=== PATIENT | female | born 1960 | race Caucasian/White ===

== ENCOUNTER 2016-11-17 23:15 | Inpatient (IN) ==
[2016-11-18] MEDS ORDERED: XYLOCAINE-MPF 1% INJ ONE (00:10)
[2016-11-18] MEDS ORDERED: TYLENOL PO ONE (00:10)
[2016-11-18] MEDS ORDERED: DUONEB (A & A) INH ONE (00:10)
[2016-11-18] MEDS ORDERED: ROCEPHIN IM ONE (00:10)
[2016-11-18] MEDS ORDERED: DECADRON IM ONE (00:11)
--- NOTE | 2016-11-18 00:13 | PROVIDER DOCUMENTATION ---
HPI-General Adult - General Chief Complaint: Cold Symptoms Stated Complaint: "CHF, COUGH, CANNOT WALK" Time Seen by Provider: 11/18/16 00:09 Source: patient Allergies/Adverse Reactions: Patient Allergies Allergy/AdvReac Type Severity Reaction Status Date / Time No Known Allergies Allergy Verified 11/18/16 03:20 Home Medications: Home Medication List Medication Instructions Recorded Confirmed Last Taken Type Cinacalcet [Sensipar] 30 mg PO DAILY 11/18/16 11/18/16 11/17/16 History Lisinopril 40 mg PO DAILY 11/18/16 11/18/16 11/17/16 History Nifedipine E.r. [Procardia ER] 60 mg PO DAILY 11/18/16 11/18/16 11/17/16 History Albuterol 2.5MG/Ipratrop 0.5MG 3 ml INH RTQ6H #120 neb 11/21/16 Unknown Rx [Duoneb (A & A)] Benzonatate [Tessalon] 100 mg PO TID PRN PRN #60 capsule 11/21/16 Unknown Rx Guaifenesin E.r. [Mucinex] 600 mg PO BID #60 tablet 11/21/16 Unknown Rx Hydralazine [Apresoline] 50 mg PO Q8H #120 tablet 11/21/16 Unknown Rx LISINOpril [Prinivil] 40 mg PO DAILY #30 tablet 11/21/16 Unknown Rx Levofloxacin 250 mg PO EVERY OTHER DAY #5 tablet 11/21/16 Unknown Rx - History of Present Illness -Gen Adult Nature of Presenting Problems: Pt is 55 y/o F c chief complaint of cough and cold symptoms that have progressively worsened over the course of 6 weeks. Pt states that 3 days ago she was seen at an urgent care and started on abx and steroids but did not start these medications until today. This evening, pt states she has had worsening sob and is concerned about her CHF. Pt has a h/o htn, chf, renal failure on dialysis (next appointment will be tomorrow morning), arthritis. On arrival, pt is sob and febrile. Review of Systems - Adult - REVIEW OF SYSTEMS - ADULT Constitutional: reports: see HPI, chills, fever, fatique Eyes: reports: no symptoms reported, blurred vision, double vision Ears, Nose, Mouth & Throat: reports: no symptoms reported. denies: ear discharge, nose pain Cardiovascular: reports: see HPI, orthopnea. denies: chest pain, irregular heart rate Respiratory: reports: see HPI, cough, shortness of breath, wheezing Gastrointestinal: reports: no symptoms reported. denies: abdominal pain, nausea , vomiting Genitourinary: reports: see HPI, other (polyuria). denies: dysuria, hesitency Musculoskeletal: reports: no symptoms reported. denies: joint pain, joint swelling Integumentary: reports: no symptoms reported. denies: hives, itching Neurological: reports: no symptoms reported. denies: numbness, paresthesia Psychiatric: reports: no symptoms reported. denies: anxiety, emotional problems Endocrine: reports: no symptoms reported. denies: change in skin pigment, cold intolerance, heat intolerance Hematologic/Lymphatic: reports: no symptoms reported. denies: blood clots, low blood count Allergic/Immunologic: reports: no symptoms reported. denies: allergic reactions , food allergy All Other Systems: Reviewed and Negative Past History - Adult - PAST MEDICAL HISTORY-ADULT Review of Records: reports: Old Records Reviewed, Nursing Assessment Review, Medications Reviewed, Social history reviewed & non-contributory. Major Childhood Illnesses: reports: denies history Cardiovascular: reports: CHF, HTN, hyperlipidemia Respiratory: reports: COPD, lung disease, pneumonia Gastrointestinal: reports: GERD, other (chronic constipation) Obstetrical/Gynecological: reports: denies history Genitourinary: reports: dialysis, ESRD Musculoskeletal: reports: arthritis Neurological: reports: denies history Endocrine/Immune: reports: denies history Other Conditions: reports: denies history - PRIOR SURGERIES/PROCEDURES Surgical/Procedure History: reports: cholecystectomy, , orthopedic ( extremity) (x-fix lower extremity), joint replacement, other (dialysis shunt) - IMMUNIZATION STATUS Childhood Immunizations: See Nurse Assessment Flu Vaccine: See Nurse Assessment - FAMILY HISTORY Family History: reviewed, not pertinent - SOCIAL HISTORY Smoking: denies Substance Use: none/never Alcohol Use Frequency: every day (2 shots daily) Living Situation: family Physical Exam-General - PHYSICAL EXAM-ADULT Initial Vital Signs Reviewed: Yes - CONSTITUTIONAL General Appearance: alert, no apparent distress - EYES Eyes: PERRL/EOMI, pink conjunctivae - HEAD, EARS, NOSE, MOUTH & THROAT HENMT: normocephalic/atraumatic, moist mucous membranes, normal ENT inspection - NECK Neck: normal inspection - RESPIRATORY Respiratory: chest non-tender, lungs clear, normal breath sounds - CARDIOVASCULAR Cardiovascular: normal peripheral pulses, regular rate, rhythm - GASTROINTESTINAL (ABDOMEN) Abdominal Exam: normal bowel sounds, non tender, soft - LYMPHATIC Lymphatic: no adenopathy - MUSCULOSKELETAL Back Exam: normal inspection, no CVA tenderness, no vertebral tenderness Extremity: normal range of motion, non-tender, normal inspection - SKIN Integumentary: normal color, normal turgor, warm/dry - NEUROLOGIC Neurologic: grossly normal, no motor/sensory deficits - PSYCHIATRIC Psych/Mental Status: normal mood/affect, normal thought content, normal thought process, oriented x 3 Progress - PLAN OF CARE/RESULTS Progress/Plan/Lab Results: Vital Signs - 8 hr 11/17/16 23:42 Temperature 101.5 F H Pulse Rate 115 H Respiratory Rate 18 Blood Pressure 186/127 O2 Sat by Pulse Oximetry 100 Orders Category Date Time Status Saline Loc NOW Care 11/18/16 00:10 Ordered ABG [RESP] Stat Lab 11/18/16 00:10 Ordered BLOOD CULTURE [BLDCUL] Stat Lab 11/18/16 00:10 Uncollected CBC WITH DIFF [HEME] Stat Lab 11/18/16 00:10 Uncollected COMPREHENSIVE METABOLIC PANEL [CHEM] Stat Lab 11/18/16 00:10 Uncollected Flu Swab [INFLUENZA SCREEN A/B] Stat Lab 11/18/16 00:13 Uncollected LACTATE, PLASMA [CHEM] Stat Lab 11/18/16 00:10 Uncollected Acetaminophen [Tylenol] Med 11/18/16 00:10 Once 650 mg PO NOW ONE Albuterol 2.5MG/Ipratrop 0.5MG [Duoneb (A & A)] Med 11/18/16 00:10 Once 3 ml INH NOW ONE CefTRIAXONE [Rocephin] Med 11/18/16 00:10 Once 1 gm IM NOW ONE Dexamethasone [Decadron] Med 11/18/16 00:11 Once 10 mg IM NOW ONE Lidocaine 1% Pf [Xylocaine-Mpf 1%] Med 11/18/16 00:10 Once 5 ml INJ NOW ONE Aerosol Treatments Routine Oth 11/18/16 00:11 Ordered Aerosol Treatments Stat Oth 11/18/16 00:11 Ordered Pulse Oximetry Stat Oth 11/18/16 00:10 Ordered Result Diagrams: 11/19/16 05:57 11/21/16 05:35 - CHANGE OF SHIFT REPORT (ED Provider) Report Given and Care Transferred to:: Dr. Evans (ER MD) Time of Transfer: 02:44 (pending labs) Departure - Departure Date of Disposition Decision: 11/18/16 Time of Disposition Decision: 04:00 DIAGNOSIS: Pneumonia Qualifiers: Pneumonia type: due to unspecified organism Laterality: unspecified laterality Lung location: unspecified part of lung Qualified Code(s): J18.9 - Pneumonia, unspecified organism Disposition: ADMITTED INPATIENT 09 Certified Medical Emergency: Emergent Condition: Stable - Critical Care Note This patient required my direct & personal management of CC.: No Attestation - Physician/ YADIRA Attestation Patient care was provided by Advanced Practice Provider:: Yes Advanced Practice Provider:: Yo Lopez Advanced Practice Provider documentation review:: The Mid-level provider documentation, treatment plan and medical decision making was reviewed by the physician who agrees with all treatment and medical decision making by the P. The physician spent face to face time with patient:: Yes Advanced Practice Provider documentation review:: Supervising physician onsite and consulted in the evaluation and care of this patient. The physician did have a face to face encounter with the patient.
[2016-11-18 00:48] LABS: ALLEN TEST YES; BE 1.1 mmoll (-3.0-3.0); BLOOD TYPE ARTERIAL; DRAW SITE R RADIAL; METHB 0.8 % (0.0-1.5); O2(CT) 12.4 mL/dL (15.0-23.0); PCO2(98.6) 36 mmHg (35-45); SAMPLE BLOOD; SAO2 85.8 % (95.0-100.0); THB 10.6 g/dL (11.5-17.4); pH(98.6) 7.45 (7.35-7.45)
[2016-11-18 00:53] LABS: MODALITY ROOM AIR; PO2(98.6) 45 mmHg (60-100)
[2016-11-18 02:43] LABS: ALBUMIN 3.8 g/dL (3.5-5.0); CALCIUM 9.6 mg/dL (8.8-10.2); POTASSIUM 4.4 mmol/L (3.5-5.1); TOTAL BILIRUBIN 0.27 mg/dL (0.20-1.00); TOTAL PROTEIN 7.6 g/dL (6.3-8.3)
[2016-11-18 03:14] LABS: BASO% 0.2 % (0.0-0.8); EOS# 0.01 X1000 (0.0-0.7); EOS% 0.2 % (0.0-10.0); HEMATOCRIT 33.6 % (37.0-47.0); HEMOGLOBIN 10.7 g/dL (12.0-16.0); LYMPH# 0.25 X1000 (1.2-3.4); LYMPH% 4.4 % (20.5-51.1); MANUAL DIFF NEEDED? NO; MCH 30.7 PG (27-31); MCHC 31.8 g/dL (33-37); MCV 96.6 FL (81-99); MONO# 0.17 X1000 (0.11-0.59); MPV 9.7 FL (7.4-10.4); NEUT% 92.2 % (42.2-75.2); PLT 198 X1000 (130-400); RBC 3.48 XMIL (4.2-5.4)
[2016-11-18 03:15] LABS: URINE CULTURE NEEDED? NO; URINE MICRO REVIEW NEEDED? NO; URINE SOURCE CLEAN CATCH
[2016-11-18 03:19] LABS: BILIRUBIN URINE NEGATIVE (NEGATIVE); BLOOD URINE NEGATIVE (NEGATIVE); COLOR YELLOW; GLUCOSE URINE 200 mg/dL (NEGATIVE); LEUKOCYTES URINE NEGATIVE (NEGATIVE); NITRITE URINE NEGATIVE (NEGATIVE); PH URINE 8.5; PROTEIN URINE >600 mg/dL (NEGATIVE); TURBIDITY URINE CLEAR (CLEAR); UROBILINOGEN URINE NORMAL (NORMAL)
[2016-11-18 03:20] LABS: UR EPITHELIAL CELLS <10 /HPF (<10); URINE BACTERIA NEGATIVE /HPF; URINE RBC <10 /HPF (<10); URINE WBC <10 /HPF (<10)
--- NOTE | 2016-11-18 05:33 | HISTORY AND PHYSICAL ---
PRIMARY CARE PHYSICIAN: None. CHIEF COMPLAINT: Shortness of breath and fever x4 days. HISTORY OF PRESENTING ILLNESS: A 55-year-old female with a history of end- stage renal disease on renal dialysis on Monday, Monday, Monday and hypertension, who presented to the emergency department with 4 days history of having cough, fever and shortness of breath. She apparently went to an urgent care and she got injection she states, and was told to fill the prescriptions. However, she did not get the prescriptions filled. She developed worsening shortness of breath and fever and subsequently had come to the emergency department. At the ER, she was evaluated and due to her presenting symptoms it was thought that she would need admission for further evaluation and management. The patient while in the ER also had imaging done, and her x- rays were read as right lower lobe infiltrate as per ER physician. At the time of my examination, she denied any headache or vision changes. No chest pain or hemoptysis. No weight changes but complained of fevers, cough and shortness of breath. PAST MEDICAL HISTORY: Includes end-stage renal disease and hypertension. PAST SURGICAL HISTORY: Cholecystectomy. Right knee surgery. Left forearm fistula. ALLERGIES: No known drug allergies. CURRENT MEDICATIONS: As listed in the medication reconciliation sheet. SOCIAL HISTORY: She denies any history of smoking. She admits to social alcohol use. Denies any illicit drug use. FAMILY HISTORY: No history of coronary disease. REVIEW OF SYSTEMS: Twelve point review of systems as listed in HPI. Other systems negative. PHYSICAL EXAMINATION: GENERAL: Cooperative and friendly female. She is resting more comfortably now. VITAL SIGNS: Includes temperature 101.5 degrees, pulse 115, respirations 18, and blood pressure 186/127. HEENT: Atraumatic, normocephalic. Extraocular movements intact. PERRLA. NECK: No masses. CHEST: Bibasilar rales. CARDIOVASCULAR: Regular rate and rhythm. ABDOMEN: Soft, obese. Positive bowel sounds. EXTREMITIES: Trace edema. NEUROLOGIC: She is awake, alert, and oriented x3. : No bladder distention. SKIN: Warm. LABORATORIES AND STUDIES: Sodium 136, potassium 4.4, chloride 92, CO2 24, BUN 64, creatinine is 6.5, glucose 108[place] [address] and troponin is 0.192. ASSESSMENT: A 55-year-old female with a history of end-stage renal disease and hypertension who had presented to the emergency department with 4 day history of fevers, shortness of breath and cough. She was evaluated in the ER. She had imaging done and consistent with pneumonia. Subsequently, she will need hospitalization for further management. 1. Pneumonia. 2. Volume overload. 3. End-stage renal disease. 4. Troponin anemia in setting of renal failure. PLAN: 1. We will admit patient to medical floor with telemetry. 2. We will check blood cultures. Start patient on IV antibiotics. 3. We will consult Nephrology for dialysis. 4. We will check an echocardiogram and consult cardiology for further evaluation of troponinemic. 5. Put patient on DVT prophylaxis, heparin and SCD's. 6. We will continue to follow and reassess. cc: Micky Sawyer MD MTDD
[2016-11-18] MEDS ORDERED: ZOSYN 3.375 GM in NS 50 ML IV SCH (06:02)
[2016-11-18] MEDS ORDERED: ZOFRAN IV PRN (06:02)
--- NOTE | 2016-11-18 06:26 | Diag Imaging Result Doc PS360 ---
EXAM: CHEST-2 VIEWS HISTORY: cough, FEVER TECHNIQUE: Upright sitting AP COMPARISON: 06/14/2012 FINDINGS: The heart is enlarged. No pleural effusions. The vessels are not distended. Dense infiltrate in the mid lower right lung. Questionable infiltrate behind the heart. IMPRESSION: 1.Right-sided pneumonia 2.Marked cardiomegaly Electronically signed by Koffi Welch 11/18/2016 6:23 AM
[2016-11-18] MEDS ORDERED: TIGHT: 0.2 ML/HR MISC PRN (07:07)
[2016-11-18] MEDS ORDERED: HEPARIN IV PRN (07:07)
[2016-11-18] MEDS ORDERED: NS 2,000 ML MISC PRN (07:07)
[2016-11-18] MEDS ORDERED: NS 2,000 ML ONE (08:15)
[2016-11-18] MEDS ORDERED: HEPARIN ONE (08:15)
--- NOTE | 2016-11-18 10:18 | CONSULTATION ---
DATE OF CONSULTATION: 11/18/2016 REASON FOR CONSULTATION: Assistance with management in an ESRD patient. HISTORY OF PRESENT ILLNESS: Ms. Smith is a 55-year-old white female who has end-stage kidney disease as a result of poorly controlled hypertension over time as well as "lots of antibiotics". She has been on dialysis since July of 2015. She was on dialysis when she moved to the area and she currently dialyzes at [facility] in [place] on Monday, Monday and Monday schedule. She has been sick for about a month with coughing but no sputum production. She has had subjective chills as well as episodes of diaphoresis. She has not been able to achieve her dry weight at the clinic because of cramping. She states she has been excessively above her dry weight and her treatments are foreshortened because of severe cramps. In this context, she presented to the emergency room with progressively worsening shortness of breath over the last 4 days. Her evaluation in the emergency room disclosed evidence of pneumonia but no pulmonary edema. PAST MEDICAL HISTORY: As above. HOME MEDICATIONS: Includes nifedipine, cinacalcet, lisinopril, and levofloxacin. ALLERGIES: None. SOCIAL HISTORY: She is and lives in [place]. Occasional alcohol. No tobacco. FAMILY HISTORY: Negative. PHYSICAL EXAMINATION: Vital Signs: Blood pressure 168/66, heart rate 85, respirations 20, and afebrile. General: She is an obese white female in no acute distress. Skin: Warm and dry. Conjunctivae are pink and moist. Pupils are equal and round. Oropharynx is clear. Neck: Supple. Neck veins are not visible. Trachea is midline. Heart: Regular with a systolic murmur loudest at the right upper sternal border. No gallops or rubs. Lungs: Equal breath sounds. No crackles or wheezes. No accessory muscle use. She is somewhat tachypneic. Abdomen: Obese and soft. Bowel sounds are present. No organomegaly, masses or bruits. Extremities: No edema, clubbing, or cyanosis. IMPRESSION: 1. Shortness of breath. Though her proBNP is elevated, she is only 2 kg above her outpatient dry weight and her chest x-ray does not have evidence of pulmonary edema. We will target 2 L today and perhaps dialyze again tomorrow in an attempt to lower her dry weight. 2. Electrolytes/acid base/anemia, all on target. 3. Hypertension is above target. We will reassess after dialysis. 4. Pneumonia. I will adjust her Zosyn dose. cc: Emil Person MD
[2016-11-18] MEDS: HEPARIN SUBQ SCH ×2 (11:06→23:00)
[2016-11-18] MEDS: ZOSYN 2.25 GM in NS 50 ML IV SCH ×2 (11:07→16:42)
[2016-11-18] MEDS: ZYVOX 600 MG/D5W 600 MG/300 ML IVPB IV SCH ×2 (11:07→23:00)
[2016-11-18] MEDS: PROCARDIA ER PO SCH ×2 (11:08→14:01)
[2016-11-18] MEDS: SENSIPAR PO SCH (11:08)
[2016-11-18] MEDS: PRINIVIL PO SCH ×2 (11:15→14:01)
--- NOTE | 2016-11-18 12:12 | CONSULTATION ---
DATE OF CONSULTATION: 11/18/2016 CHIEF COMPLAINT: Shortness of breath, cough. REASON FOR CONSULTATION: One troponin level is elevated at 0.092, and ProBNP is 20,562. HISTORY OF PRESENT ILLNESS: Ms. Smith is an unfortunate 55-year-old female, morbidly obese, BMI is 48, who presented to the emergency room at around midnight with complaints of increasing cough and dyspnea that has been going on for several days. The patient usually goes to [place] under Dr. Robles for hemodialysis. She said that for 3 days she had not been feeling well, and she decided to seek evaluation in the ER. A chest x-ray was done and reported by Dr. Welch as indicating right-sided pneumonia, marked cardiomegaly. She has been tested, put on ceftriaxone, dexamethasone and piperacillin. She has been admitted as a possible case of pneumonia. EKG was done at 1:24 in the morning and shows sinus tachycardia with PACs, no acute ischemic changes. The patient denies having any chest pain. PAST MEDICAL HISTORY: Positive for hypertension for a number of years. She has developed renal insufficiency, and she has been on dialysis for the past 1 year. She has a history of sleep apnea syndrome; however, she has refused to use the CPAP mask. She has had previous cellulitis of the legs. PAST SURGICAL HISTORY: Positive for section, right leg fracture, cholecystectomy. FAMILY HISTORY: Hypertension. Mother had diabetes. SOCIAL HISTORY: She is not a smoker, not a drinker. about a year ago. She used to live in [place]. She has 2 children in [place]. The patient has been found to have a heart murmur, and her cloth measurer machine recommended cardiac evaluation, and she was going to see one [facility]. The patient normally goes to [place] for hemodialysis. She has a dialysis access in the left forearm. HOME MEDICATIONS: Nifedipine 60 mg daily, lisinopril 40 mg daily, Levaquin 250 every other day, Sensipar 30 mg daily. REVIEW OF SYSTEMS: She has developed lately cough and dyspnea. No chest pains. Occasionally some chest discomfort when the spell of cough is too intense. No other positives. She has no significant swelling. PHYSICAL EXAMINATION: Blood pressure is 168/66, temperature 98.7, pulse 85, respirations 20. She is awake, alert and oriented. No distress. HEENT: Unremarkable. Chest: Diminished breath sounds at bases, especially the right. Heart sounds are regular and rhythmic with a loud systolic murmur of 2 to 3/6 over the aortic area and over the right subclavian area. Her abdomen is obese, nontender. No mass. No hepatomegaly. Extremities showed good pulses. No peripheral edema. Neurologic: Follows commands. Moves all 4 extremities. DIAGNOSTIC DATA: Blood gases showed pH of 7.45, CO2 of 36, pO2 of 45. Her hemoglobin is 10.7, white count 5630. Sodium is 136, potassium 4.4, chloride 92, carbon dioxide is 24. IMPRESSION: 1. The patient is with increasing dyspnea, elevated ProBNP, abnormal chest x-ray. She may have CHF, diastolic dysfunction plus pneumonia. 2. End stage renal disease on hemodialysis. 3. Morbid obesity. 4. History of sleep apnea. 5. History of hypertension. 6. Elevation of troponin level, just one measurement, minimally elevated at 0.092. This may be absolutely nothing, or it could be indication of concomitant coronary heart disease. RECOMMENDATIONS: We will obtain an echocardiogram. I would probably like to do a CT scan of the chest for better definition of this patient's pneumonia as the chest x-ray is really fuzzy. We will check inflammatory markers. Further advice will be forthcoming. Thank you for asking us to participate in her evaluation. Best regards. cc: Andrey Jones MD
--- NOTE | 2016-11-18 14:52 | Diag Imaging Result Doc PS360 ---
EXAM: CT THORAX W/O CONTRAST INDICATION: PNEUMONIA/OBESITY TECHNIQUE: Dose reduction protocol was used. COMPARISON: None. FINDINGS: There is patchy airspace consolidation bilaterally with a basilar predominance consistent with pneumonia. There is involvement of all of the pulmonary lobes bilaterally but is worst at the left and right lower lobes and the right middle lobe. There is mediastinal and hilar lymphadenopathy that is probably reactive. Consider follow-up to assure resolution. There is cardiomegaly. There are coronary artery atherosclerotic calcifications and mitral valve calcifications. There is no pleural fluid collection and no pneumothorax. Limited views of the upper abdomen reveals marked atrophy of the left kidney. The right kidney is out of the [id number]. There is a cyst at the upper pole of the left kidney. IMPRESSION: 1.Patchy consolidations bilaterally with a basilar predominance consistent with pneumonia. 2.Mediastinal and hilar lymphadenopathy that is probably reactive. 3.Cardiomegaly. 4.Other incidental/nonacute findings detailed above. Electronically signed by Yo Lopez 11/18/2016 2:50 PM
--- NOTE | 2016-11-18 16:18 | PROGRESS NOTE ---
DATE: 11/18/2016 SUBJECTIVE: Today Ms. Smith refers to be doing a little better. Still continues to have cough and some wheezing. OBJECTIVE: Vital signs: Blood pressure is 160/74, pulse of 91, respirations 20 , temperature 98.6 degrees. General exam: Ms. Smith is a 55-year-old female, morbidly obese with a BMI of 48.4. She was in bed in mild respiratory rate distress. HEENT: Mucosa is pink and moist. Anicteric. Acyanotic. Neck: Supple. Chest: Air entry is bilaterally reduced. There are diffuse bilateral both inspiratory and expiratory wheezing with some posterior lung field crackles. Cardiovascular: Regular rate and rhythm. No murmurs, no rubs, no gallops. Abdomen: Soft. Extremities: No edema. LABORATORY DATA: 1. WBC is 5.63, hemoglobin is 10.7, platelet count of 198. Chemistry is reviewed consistent with end-stage renal disease. 2. ProBNP is 20,568. 3. Of note, the patient's ABG showed a PO2 of 45. X-RAYS: 1. A chest x-ray which was done on admission shows right-sided pneumonia, mild cardiomegaly. 2. A CT scan of the chest also shows patchy consolidations bilateral with basilar predominance consistent with pneumonia. Mediastinal and hilar lymphadenopathy that is probably reactive, and there is also cardiomegaly. ASSESSMENT: 1. Acute hypoxemic respiratory failure on presentation secondary to pneumonia. 2. Multifocal pneumonia, more predominant in the right lower lobe. Patient is currently on antibiotics. Has been seen by infectious disease. 3. End-stage renal disease on hemodialysis. We will continue with scheduled and patient has been seen by nephrology. 4. Cardiomegaly with elevated ProBNP consistent with congestive heart failure, most probably diastolic dysfunction. Echocardiogram is being done as we speak. Will be waiting for the ejection fraction and other heart findings. PLAN: So, in general, we are going to continue Ms. Smith on the current Zosyn antibiotic. I have added Zyvox to cover for possible MRSA. Will be awaiting echocardiogram to make further recommendations. cc: Daniel Bray MD [facility] CENTERDory
--- NOTE | 2016-11-18 18:19 | ECHO REPORT ---
ORDER DATE: 11/18/2016 INDICATION: CHF, morbid obesity, dialysis. FINDINGS: 1. Right atrium appears normal in size at 3.6 cm. 2. Mild tricuspid regurgitation. RV systolic pressure of 57. 3. Normal RV size and systolic function. 4. No significant pulmonic insufficiency. 5. Moderate to severe left atrial enlargement at 5.5 cm. 6. There does not appear to be any mitral valve prolapse present. There is calcification and restriction in motion of the mitral leaflets. Mean gradient across the valve is 8.7, suggesting a moderate degree of mitral stenosis. 7. Normal LV size with an end-diastolic dimension of 5.3. Moderate left ventricular hypertrophy with a posterior and interventricular septal wall thickness of 1.5 and 1.4 cm respectively. Normal LV systolic function with a calculated EF 54%. 8. Suggestion of severe aortic stenosis with calcification and restriction of the mitral leaflets. Peak gradient across valve is 114 with a mean of 67. Valve area is 1 cm2 by the continuity equation. No evidence of aortic insufficiency. 9. Aorta appears normal in visualized segments. 10. No pericardial effusion seen. cc: MD Andrey Naylor MD
[2016-11-18] MEDS: TESSALON PO PRN (23:00)
[2016-11-19] MEDS: ZOSYN 2.25 GM in NS 50 ML IV SCH ×6 (01:46→22:44)
[2016-11-19] MEDS: TESSALON PO PRN ×2 (06:19→19:42)
[2016-11-19 06:23] LABS: MANUAL DIFF NEEDED? NO
[2016-11-19 06:27] LABS: BASO% 0.3 % (0.0-0.8); EOS# 0.01 X1000 (0.0-0.7); EOS% 0.3 % (0.0-10.0); HEMATOCRIT 30.7 % (37.0-47.0); HEMOGLOBIN 9.6 g/dL (12.0-16.0); LYMPH# 0.48 X1000 (1.2-3.4); LYMPH% 13.4 % (20.5-51.1); MCH 30.5 PG (27-31); MCHC 31.3 g/dL (33-37); MCV 97.5 FL (81-99); MONO# 0.27 X1000 (0.11-0.59); MONO% 7.5 % (1.7-9.3); MPV 9.4 FL (7.4-10.4); NEUT% 78.5 % (42.2-75.2); PLT 195 X1000 (130-400); RBC 3.15 XMIL (4.2-5.4)
[2016-11-19 07:05] LABS: CALCIUM 9.2 mg/dL (8.8-10.2); POTASSIUM 3.8 mmol/L (3.5-5.1)
[2016-11-19] MEDS ORDERED: HEPARIN IV PRN (09:29)
[2016-11-19] MEDS ORDERED: NS 2,000 ML MISC PRN (09:29)
[2016-11-19] MEDS ORDERED: TIGHT: 0.2 ML/HR MISC PRN (09:29)
[2016-11-19] MEDS ORDERED: HEPARIN ONE (09:56)
[2016-11-19] MEDS ORDERED: NS 2,000 ML ONE (10:05)
[2016-11-19] MEDS: SENSIPAR PO SCH ×2 (10:23→14:46)
[2016-11-19] MEDS: ZYVOX 600 MG/D5W 600 MG/300 ML IVPB IV SCH ×3 (10:24→23:28)
[2016-11-19] MEDS: PRINIVIL PO SCH ×2 (10:25→14:47)
[2016-11-19] MEDS: PROCARDIA ER PO SCH ×2 (10:25→14:46)
[2016-11-19] MEDS: HEPARIN SUBQ SCH ×3 (10:26→22:44)
--- NOTE | 2016-11-19 10:57 | PROGRESS NOTE ---
DATE: 11/19/2016 SUBJECTIVE: Shortness of breath and fever for 4 days. A 55-year-old with a history of end-stage renal disease, on renal dialysis Monday, Wednesdays, and Fridays. She has a history of hypertension. She presented to the emergency department with a 4-day history of cough, fever, shortness of breath. She apparently went to Urgent Care and got an injection and states she was told to fill the prescriptions; however, she did not get the prescriptions filled. She developed worsening shortness of breath and fever and subsequently had to come to the emergency room. In the ER, she was evaluated due to presenting symptoms and thought she would need admission. Imaging was done. X-ray read as right lower lobe infiltrate. At the same time, she denied any chest pain, so admitted with lobar pneumonia, community-acquired, and end-stage renal disease. PAST SURGICAL HISTORY: Cholecystectomy, right knee surgery, left forearm fistula appreciated with good palpable thrill. PHYSICAL EXAMINATION: Temperature 98.3 degrees, pulse 77, respirations 20, blood pressure 168/66. Lungs are clear in all lung waters. Cardiovascular: Regular rhythm and rate without murmur or S3. Abdomen soft. Skin is warm and dry. Urine output 2700 mL. LABORATORY DATA: White count 3590, hematocrit 30, platelet count 195,000. Sodium 138, potassium 3.8, chloride 94. BUN 42, creatinine 5.2. Troponin was 0.106, 0.114. ASSESSMENT AND PLAN: 1. Acute hypoxic respiratory failure presented with secondary pneumonia. Continue present. She has multifocal pneumonia apparently but more prominent in the right lower lobe, community acquired. Continue present antibiotics. Right now, she is taking linezolid 600 mg IV q. 12 hours, and Zosyn 2.25 mg IV q. 8. 2. End-stage renal disease. Continue her dialysis. I think she is supposed to get it this morning. Her volume status, electrolytes, acid-base look good. 3. Cardiomegaly. She has most likely diastolic dysfunction. Echocardiogram was performed yesterday read by Dr. Geovanni Galindo. No significant pulmonary insufficiency, right systolic pressure is 57. Does not appear to have any mitral valve prolapse present and normal left ventricular function and end-diastolic dimension of 5.3. Systolic function calculated ejection fraction of 54 suggesting severe aortic stenosis with calcification restriction of mitral leaflets. Peak gradient was 114 with a mean of 67. No evidence of aortic insufficiency. Chest CT done on 11/18/2016: Patchy consolidations bilateral but with basilar predominance consistent with pneumonia, mediastinal hilar lymphadenopathy. We reviewed orders. I do not see any changes. Her blood pressures systolic have been running in the 160s, so she may benefit from lowering her afterload given her aortic stenosis. cc: Timothy Guevara MD
--- NOTE | 2016-11-19 13:32 | PROGRESS NOTE ---
DATE: 11/19/2016 SUBJECTIVE: Still some shortness of breath. OBJECTIVE: Vital Signs: Blood pressure 168/66, heart rate 87, respirations 20, afebrile. Intake 300 mL. Output 2.8 L. PHYSICAL EXAMINATION: General: No acute distress. Skin: Warm and dry. Conjunctivae are pink. Neck: Neck veins are not visible. Heart: Regular without gallops or murmurs. Lungs: Have equal breath sounds. No crackles or wheezes. Abdomen: Soft, nontender. Bowel sounds present. Extremities: Have no edema, clubbing, or cyanosis. IMPRESSION: 1. End-stage kidney disease. She is having an extra dialysis treatment to challenge her dry weight. This has been a problem for her as an outpatient. 2. Pneumonia. Receiving appropriate treatment. 3. Anemia. We will add erythropoietin. cc: Emil Person MD
[2016-11-19] MEDS: MUCINEX PO SCH ×3 (14:46→22:44)
--- NOTE | 2016-11-19 15:10 | PROGRESS NOTE ---
DATE: 11/19/2016 SUBJECTIVE: Ms. Smith is currently on hemodialysis. She is tolerating this well. She has no complaints of syncope. No chest pain. PHYSICAL EXAMINATION: Vital signs: She is afebrile. Heart rate in the 80s to 90s, blood pressure 182/70. Her I's and O's for the course of the hospitalization are negative roughly 5.5 L. Generally: No acute distress. Cardiovascular: She sounds to be in a regular rate and rhythm. She has a prominent 2/6 systolic murmur that is crescendo decrescendo at the right upper sternal border. No lower extremity edema. Lungs: Her chest exam is relatively clear. No increased work of breathing. Abdomen: Soft, nontender, nondistended. Skin Exam: Warm and dry throughout. PERTINENT DATA: Her white count is 3.6, hematocrit 30.7, platelet count 195,000. Sodium 138, potassium 3.8, BUN 42, creatinine 5.2. Cardiac enzymes have been relatively flat ranging from 0.087 to 0.114. ASSESSMENT: 1. Apparently severe aortic stenosis. 2. Volume overload on hemodialysis. PLAN: She certainly appears to have severe aortic stenosis with a valve area 1 cm2. Her mean gradient was measured at 67 mmHg. In addition, she has evidence for a moderate degree of mitral stenosis. She will likely need an outpatient evaluation for consideration for replacement of the aortic valve. Presently, I would continue with volume removal. cc: Geovanni Galindo MD
[2016-11-19] MEDS: DUONEB (A & A) INH SCH ×2 (16:21→22:42)
[2016-11-19] MEDS ORDERED: RESTORIL PO ONE (20:34)
[2016-11-19] MEDS: TYLENOL PO PRN (21:24)
[2016-11-20] MEDS: DUONEB (A & A) INH SCH ×4 (03:10→22:30)
[2016-11-20] MEDS: ZOSYN 2.25 GM in NS 50 ML IV SCH ×3 (05:56→21:58)
[2016-11-20] MEDS ORDERED: RESTORIL PO PRN (10:05)
[2016-11-20] MEDS: SENSIPAR PO SCH (10:28)
[2016-11-20] MEDS: TYLENOL PO PRN (10:28)
[2016-11-20] MEDS: MUCINEX PO SCH ×2 (10:28→21:07)
[2016-11-20] MEDS: PROCARDIA ER PO SCH (10:28)
[2016-11-20] MEDS: PRINIVIL PO SCH (10:28)
[2016-11-20] MEDS: HEPARIN SUBQ SCH ×2 (10:29→21:07)
--- NOTE | 2016-11-20 10:50 | PROGRESS NOTE ---
DATE: 11/20/2016 SUBJECTIVE: She feels much better. She says that this is the 1st night of good sleep she has had. Breathing much more comfortably. She would like to stay and get dialysis again in the morning and then and maybe we can let her go home. PHYSICAL EXAMINATION: Vital Signs: Temperature 98.7, pulse 76, respirations 20, blood pressure 184/82. Lungs: Are clear in all lung waters. Cardiovascular Examination: Regular rhythm and rate without murmur or S3. No distended neck veins. Extremities: Without clubbing, cyanosis, or edema. LAB: From the were reviewed. Hematocrit is stable at 30. Electrolytes looked good. ASSESSMENT AND PLAN: 1. Apparently severe aortic stenosis, volume overload responding to hemodialysis and breathing much better. Sleeping much better. 2. End-stage renal disease. Her electrolytes and acid base status looked good. 3. Pneumonia, treating for potential pneumonia. She has multifocal pneumonia, prominent right lower lobe. This appears to be keep improving clinically. We will check another chest x-ray tomorrow. She is on linezolid 600 mg intravenous every 12 and Zosyn 2.25 mg intravenous every 8. 4. I think the plan is to get dialysis again tomorrow and maybe go home. We will see what Dr. Person wants to do. cc: Timothy Guevara MD
[2016-11-20] MEDS: ZYVOX 600 MG/D5W 600 MG/300 ML IVPB IV SCH ×2 (11:44→22:37)
--- NOTE | 2016-11-20 14:09 | PROGRESS NOTE ---
DATE: 11/20/2016 SUBJECTIVE: She reports she is doing well today. She has no complaints. She is tolerating dialysis. PHYSICAL EXAMINATION: Vital signs: She is afebrile. Her heart rates seem to be in the 70s to 90s. Her blood pressure has continued to be elevated in the 150s-160s systolic. General: She is in no acute distress. Cardiovascular: She is in a regular rate and rhythm. She has a 2 to 3/6 systolic murmur best heard at the right upper sternal border with no lower extremity edema. Chest: Clear bilaterally. No increased work of breathing. Abdomen: Soft, nontender, nondistended. She has no obvious organomegaly. ASSESSMENT: 1. Severe aortic stenosis. 2. Volume overload. PLAN: The patient continues on hemodialysis. [facility] [place] [facility] further evaluations of her aortic valve. Ultimately she will likely need operative intervention. I will add in hydralazine 25 q.8 considering her continued marked hypertension. cc: Geovanni Galindo MD
[2016-11-20] MEDS: TESSALON PO PRN ×2 (17:25→21:07)
[2016-11-20] MEDS: APRESOLINE PO SCH (21:08)
[2016-11-21] MEDS: DUONEB (A & A) INH SCH ×2 (04:01→10:30)
[2016-11-21] MEDS ORDERED: HEPARIN IV PRN (06:38)
[2016-11-21] MEDS ORDERED: TIGHT: 0.2 ML/HR MISC PRN (06:38)
[2016-11-21] MEDS ORDERED: NS 2,000 ML MISC PRN (06:38)
[2016-11-21] MEDS: APRESOLINE PO SCH (06:47)
[2016-11-21] MEDS: TESSALON PO PRN ×2 (06:47→14:22)
[2016-11-21] MEDS: ZOSYN 2.25 GM in NS 50 ML IV SCH ×2 (06:47→14:43)
[2016-11-21] MEDS: TYLENOL PO PRN (06:54)
[2016-11-21 07:04] LABS: ALBUMIN 3.7 g/dL (3.5-5.0); CALCIUM 8.8 mg/dL (8.8-10.2); POTASSIUM 3.8 mmol/L (3.5-5.1)
[2016-11-21 07:42] VITALS: BP 169/75
[2016-11-21] MEDS ORDERED: HEPARIN ONE (08:05)
[2016-11-21] MEDS ORDERED: NS 2,000 ML ONE (08:05)
[2016-11-21] MEDS ORDERED: EPOGEN SUBQ SCH (09:00)
[2016-11-21] MEDS ORDERED: APRESOLINE PO SCH (11:37)
--- NOTE | 2016-11-21 12:05 | PROGRESS NOTE ---
DATE: 11/21/2016 SUBJECTIVE: Ms. Smith reports no chest pain. No shortness of breath. She has not had any syncope. PHYSICAL EXAMINATION: Vital Signs: She is afebrile. Heart rates in the 70s to 90s. Blood pressure 169/75. General: She is in no acute distress. Cardiovascular: She is in a regular rate and rhythm. She has a 2/6 systolic murmur. No lower extremity edema. Chest Examination: Clear bilaterally. No increased work of breathing. Abdomen: Soft, nontender, nondistended. She has no obvious organomegaly. Skin Examination: Warm and dry throughout. PERTINENT DATA: Sodium is 133, potassium 3.8, BUN 76, creatinine 8.2. ASSESSMENT: 1. Likely severe aortic stenosis. 2. End-stage renal disease. PLAN: She will need an outpatient evaluation for aortic stenosis, which has already been evaluated per her See Supervisor. I have increased her anti-hypertensives, via increasing her hydralazine to [address] Andrey Jones will be back on Monday and he will resume following the patient if she is still in the hospital. cc: Geovanni Galindo MD
--- NOTE | 2016-11-21 13:27 | PROGRESS NOTE ---
DATE: 11/21/2016 SUBJECTIVE: Ms. Smith is feeling better. Breathing better. She had a good night. Think plan is for dialysis today then to go home. OBJECTIVE: Vital signs: Temperature 97.6 degrees, pulse 78, respirations 20, blood pressure 169/75. Lungs: Are clear in all lung waters. Cardiovascular: Regular rhythm and rate without murmur or S3. Abdomen: Soft. Skin: Is warm and dry. Urine output about 3500 mL. LAB: Reviewed lab from the , reviewed electrolytes which looks stable. Acid-base status good. ASSESSMENT AND PLAN: 1. Likely severe aortic stenosis. 2. End-stage renal disease. She will need outpatient evaluation for aortic stenosis and evaluated by color checker roving or yarn. We increased her antihypertensive increasing her hydralazine so plan to let her go home, follow up with Cardiology after dialysis. cc: Timothy Guevara MD
--- NOTE | 2016-11-21 13:27 | DISCHARGE SUMMARY ---
ADMISSION DATE: 11/18/2016 DISCHARGE DATE: 11/21/2016 HISTORY: This is a 55-year-old with a history of end-stage renal disease, on renal dialysis Monday, Wednesdays, and Fridays, and history of hypertension, presented to the emergency department with a 4-day history of having cough, fever, shortness of breath. She apparently went to urgent care and got an injection. States that she was told to fill the prescriptions; however, she did not get prescriptions filled. Developed worsening shortness of breath, fever, and subsequently had to come to the emergency room. In the emergency room she was evaluated. Thought that she needed admission for further evaluation and management. The x-rays were read as right lower lobe infiltrate. She denied any headache, vision changes. No chest pain or hemoptysis. No weight changes. No complaints of orthopnea. PAST MEDICAL HISTORY: Includes end-stage renal disease and hypertension. PAST SURGICAL HISTORY: Cholecystectomy, right knee surgery, left forearm fistula. HOSPITAL COURSE: She was admitted. She was dialyzed. Volume status brought down. Treated empirically with some antibiotic. Chest CT done on 11/18/2016: 1) Patchy consolidation bilaterally consistent possibly with pneumonia. 2) Mediastinal hilar adenopathy this probably reactive. 3) Cardiomegaly. Cardiology helped to evaluate. Echocardiogram done on 11/18/2016, there was severe left atrial enlargement of 5.5 cm. Normal RV size and systolic function. Mild tricuspid regurgitation. Normal LV size and end-diastolic dimension 5.3. Ejection fraction 54%. There is suggestion of severe aortic stenosis with calcification and restriction of the mitral leaflets. Peak gradient across the mitral valve was 114 and mean was 67. Valve area was 1 cm continuity equation. No evidence of aortic insufficiency. The patient continued to improve and she wanted to go home. [place] we could discharge her on 11/21/2016. DISCHARGE MEDICATIONS: Sensipar 30 mg p.o. daily. She will get her Epogen with her dialysis. Hydralazine 50 mg p.o. q.8 hours, Prinivil 40 mg a day, Procardia ER 60 mg a day. Note that we had no growth from blood cultures and probably will discharge her on Levaquin 500 mg a day for another 7 days. FOLLOW-UP: Will follow up with cardiology in regards to her aortic stenosis. Follow up with Dr. Person for her dialysis. We will see if we can set her up for a follow-up chest x-ray. I am not sure she has a primary care physician. cc: Timothy Guevara MD
[2016-11-21] MEDS: PRINIVIL PO SCH (14:06)
[2016-11-21] MEDS: PROCARDIA ER PO SCH (14:06)
[2016-11-21] MEDS: HEPARIN SUBQ SCH (14:06)
[2016-11-21] MEDS: MUCINEX PO SCH (14:08)
[2016-11-21] MEDS: SENSIPAR PO SCH (14:10)
[2016-11-21] MEDS: ZYVOX 600 MG/D5W 600 MG/300 ML IVPB IV SCH (14:13)
--- NOTE | 2016-11-21 14:45 | PROGRESS NOTE ---
DATE: 11/21/2016 SUBJECTIVE: Ms. Smith is resting quietly in bed. She is on hemodialysis. She is tolerating this well. She has no complaints. States that she hopes she is going home today. OBJECTIVE: Vital Signs: Temperature 98 degrees, blood pressure 177/95, heart rate 89, respirations 12. She is on room air. Last recorded saturation 100%. She has had 1040 in and she has had 4.8 L removed off of dialysis within the last 2 days. LABORATORY DATA: Sodium 133, potassium 3.8, chloride is 89, CO2 21, BUN 76, creatinine 8.2. Glucose 89, anion gap 23, calcium 8.8, phosphorus 9.2, albumin 3.7. Previous hemoglobin 9.6 on the . PHYSICAL EXAMINATION: General: This is a 55-year-old white female. She is resting quietly in bed. She is on hemodialysis. She is tolerating this well. HEENT: Normocephalic. Atraumatic. Conjunctivae pale. She has MONET. Mucous membranes moist. Neck: Supple. Trachea midline. No JVD. Cardiovascular: Regular rate and rhythm. She is without murmur or gallop. Lungs: Clear to auscultation anteriorly. Equal excursion. Abdomen: Round, soft, nontender. Positive bowel sounds. Extremities: Have no edema. No clubbing or cyanosis. Neurological: Alert and oriented x3. ASSESSMENT AND PLAN: 1. End-stage renal disease. Patient is due for her routine dialysis treatment. She is currently tolerating dialysis well. She is on a 2 K. We will dialyze her for 3-1/2 hours. We will attempt to pull patient to her last dry weight and reset her dry weight. We will also notify her outpatient clinic of her new dry weight after her treatment today. 2. Electrolytes and acid-base balance. These are stable except for her phosphorus which is elevated at 9.2. Patient states that she has been on Renvela and did not tolerate this. She states that her current physician is working on getting her approval for another treatment. We have discussed that she is to follow this up outpatient discharge. 3. Anemia. She has been added on erythropoietin. 4. Pneumonia. She has received appropriate treatments per primary care I would to thank you for allowing us to follow with this patient. Dictated by NOA Benedict for Emil Person MD Patient seen, data reviewed, discussed with Beau Locke on 11/21/16. I agree with the above assessment and plan of care. cc: NOA Benedict MD [facility]
--- NOTE | 2017-01-11 21:49 | ED EKG INTERP ---
This chart was entered by Giovanna Ku Scribe, acting as scribe for Tirso Evans MD. EKG Interpretation - EKG Time of EKG reading by physician:: 01:24 EKG Read and Signed by:: Tirso Evans EKG Interpretation (*Must complete 3 of following elements*): Normal Rate: 119 Rhythm: sinus tachycardia with PACs [place]: normal Attestation - Physician/ YADIRA Attestation Patient care was provided by Advanced Practice Provider:: No The physician spent face to face time with patient:: No Advanced Practice Provider documentation review:: Supervising physician onsite and consulted in the evaluation and care of this patient. The physician did not have a face to face encounter with the patient. This chart was documented by the indicated scribe, (Giovanna Ku Scribe) and accurately reflects the services I performed and decisions made by me, Tirso Evans MD, as attested by the provider's signature.
== END 2016-11-21 15:00 | disposition home or self-care (01) ==
LOC: ED 23:15 → SUATTDRO 11-18 05:25 → 4N 11-18 05:25
PROVIDERS: ATTEND Emergency Medicine